=== PATIENT | female | born 1995 | race Caucasian/White ===

== ENCOUNTER 2023-08-28 16:57 | Outpatient (CLI) | payer BC, MEDICAID, SELFPAY | END 2023-08-28 16:58 | disposition home or self-care (01) | LOC: NFLDREF 09-05 11:36 | PROVIDERS: Visit Provider Nurse Practitioner Family | DX: R10.9 Unspecified abdominal pain (principal); R39.14 Feeling of incomplete bladder emptying; R30.0 Dysuria | CPT/HCPCS: 87086 ==

== ENCOUNTER 2023-08-30 14:48 | Emergency (ER) | payer BC, MEDICAID, SELFPAY ==
[2023-08-30 15:14] VITALS: BP 115/76; PULSE 70; RESP 16; TEMP 36.4; O2SAT 96; BMI 30.2
[2023-08-30] MEDS: LACTATED RINGERS 1000 ML 1,000 ML IV (15:57)
[2023-08-30] MEDS: diphenhydrAMINE 50 MG/ML inj 25 MG IVP (15:57)
[2023-08-30] MEDS: METOCLOPRAMIDE HCL 5 MG/ML INJ 10 MG IVP (15:57)
--- NOTE | 2023-08-30 16:27 | ED_ITS ---
HPI - Eye Problem General Date Seen: 08/30/23 Chief complaint: Eye Problems Stated complaint: Vision disruption - Time Seen by Provider: 08/30/23 15:20 Source: patient Mode of arrival: ambulatory Limitations: no limitations History of Present Illness HPI Narrative: Patient is a 27-year-old female presenting to the emergency department for visual disturbance noted to her left eye. 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 She is unsure what this exactly is from. 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 States she noticed a black spot in her vision that appeared blurry and then she began to notice shapes and lines going through her vision. This has since fully resolved and now she is having a headache. States she has ocular migraines the past but this felt different according to her. Denies weakness, numbness, chest pain, shortness of breath, lightheadedness, dizziness. No other concerns noted at this time peer Related Data Home Medications ?Medication ?Instructions ?Recorded ?Confirmed bupropion HCl 75 mg tablet 75 mg PO DAILY 08/28/23 08/28/23 fluorometholone 0.1 % eye drp ophthalmic (eye) 08/28/23 08/28/23 drops,suspension sumatriptan succinate 25 mg tablet mg PO 08/28/23 08/28/23 vibegron 75 mg tablet (Gemtesa) mg PO 08/28/23 08/28/23 Allergies Allergy/AdvReac Type Severity Reaction Status Date / Time Sulfa (Sulfonamide Allergy Verified 08/28/23 16:37 Antibiotics) sulfamethoxazole Allergy Verified 08/28/23 16:37 [From Bactrim] trimethoprim [From Bactrim] Allergy Verified 08/28/23 16:37 Review of Systems Narrative: Pertinent systems reviewed and negative unless stated in HPI PFSH PFSH Social History Smoking Status: Never smoker Do you use any of these nicotine containing products: None Second hand tobacco smoke exposure: No How often do you have a drink containing alcohol: never AUDIT-C Alcohol total score: 0 Non-prescribed substance use: denies use Exam Narrative: Exam Narrative: Const: Well-nourished, Well-developed, in mild distress Eyes: PERRL, no conjunctival injection, and symmetrical lids HENT: Atraumatic external nose and ears. Moist mucous membranes. Neck: Symmetric, trachea midline, No thyromegaly. MSK:Extremities w/o deformity, Normal Active ROM Skin: Warm, Dry. No rashes or lesions. Neuro: Normal Muscle tone, No focal neurological deficits. Psych: Awake, Alert, & Oriented x3. Appropriate mood and affect. Const: Vital Signs, click to edit/add: Vital Signs - 24 hr 08/30/23 15:14 Temperature 97.6 F Pulse Rate [Pulse Oximeter] 70 Respiratory Rate 16 Blood Pressure [Ri ght Upper Arm] 115/76 Pulse Oximetry 96 Oxygen Delivery Me thod Room Air Course Vital Signs Vital signs: Initial Vital Signs Temperature 97.6 F 08/30/23 15:14 Temperature Source Temporal Artery Scan 08/30/23 15:14 Pulse Rate 70 08/30/23 15:14 Respiratory Rate 16 08/30/23 15:14 Blood Pressure 115/76 08/30/23 15:14 Blood Pressure Mean 89 08/30/23 15:14 Pulse Oximetry 96 08/30/23 15:14 Oxygen Delivery Method Room Air 08/30/23 15:14 Vital Signs Temperature 97.6 F 08/30/23 15:14 Pulse Rate 70 08/30/23 15:14 Respiratory Rate 16 08/30/23 15:14 Blood Pressure 115/76 08/30/23 15:14 Pulse Oximetry 96 08/30/23 15:14 Oxygen Delivery Method Room Air 08/30/23 15:14 Temperature 97.6 F 08/30/23 15:14 Pulse Rate 70 08/30/23 15:14 Respiratory Rate 16 08/30/23 15:14 Blood Pressure 115/76 08/30/23 15:14 Pulse Oximetry 96 08/30/23 15:14 Oxygen Delivery Method Room Air 08/30/23 15:14 Medications Administered Medications: Discontinued Medications Generic Name Dose Route Start Last Admin Trade Name Freq PRN Reason Stop Dose Admin Diphenhydramine HCl 25 mg 08/30/23 15:30 08/30/23 15:57 Diphenhydramine 50 Mg/Ml Inj IVP 08/30/23 15:31 25 mg ONCE ONE Administration Lactated Ringer's 1,000 mls @ 1,000 mls/hr 08/30/23 15:30 08/30/23 15:57 Lactated Ringers 1000 Ml IV 08/30/23 16:29 1,000 mls/hr .Q1H ONE Administration Metoclopramide HCl 10 mg 08/30/23 15:30 08/30/23 15:57 Metoclopramide Hcl 5 Mg/Ml Inj IVP 08/30/23 15:31 10 mg ONCE ONE Administration MDM - Eye Problem MDM Narrative Medical decision making narrative: Patient is a 27-year-old female presenting to the emergency department for visual acuity changes. Her vision is back to normal. 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 Due to that this seems very unlikely to be in kind of tumor that caused his acute episode of blurry vision. I do not believe imaging is necessary at this time will be unnecessary radiation for a patient of her age. She is follow up frequently with Ophthalmology with her last visit being in 2022. She is having headaches we will treat her with a migraine cocktail including fluids, Benadryl, Reglan. After this medicine she is feeling much better. Visual acuity in left eye eyes 20/25. She would like to be discharged at this time and I believe this is reasonable. Discharge Plan Discharge Clinical Impression: Migraine Qualifiers: Migraine type: other Status migrainosus presence: without status migrainosus Intractability: not intractable Qualified Code(s): G43.809 - Other migraine, not intractable, without status migrainosus Patient Disposition: Home, Self-Care Condition: Improved Instructions: Migraine Headache (ED) Additional Instructions: Symptoms seem most likely to be related to another ocular migraine. If you do develop symptoms again make sure you get re-evaluated. If you are concerned you can follow-up with your cardiac exercise physiologist on Saturday. Return to emergency department for any other new or worsening symptoms Prescriptions: No Action Gemtesa 75 mg tablet PO bupropion HCl 75 mg tablet 75 mg PO DAILY sumatriptan succinate 25 mg tablet PO fluorometholone 0.1 % drops,suspension ophthalmic (eye) Follow Up/Referrals: Provider,Not a Local [Primary Care Provider] - Stand Alone Forms: [email or web address] Info Instructions
== END 2023-08-30 16:32 | disposition home or self-care (01) ==
PROVIDERS: Emergency Provider Student in an Organized Health Care Education/Training Program
DX: G43.809 Other migraine, not intractable, without status migrainosus (principal)
CPT/HCPCS: 96374; 96375; 99282; 99283; J1200; J2765; J7120

== ENCOUNTER 2024-01-09 14:00 | Emergency (ER) | payer BC, MEDICAID, SELFPAY ==
[2024-01-09 14:08] VITALS: BP 117/85; PULSE 96; RESP 14; TEMP 36.9; O2SAT 99; BMI 28.9
--- NOTE | 2024-01-09 14:30 | CRLHL7_ITS ---
For Patients: As a result of the Century Cures Act, medical imaging exams and procedure reports are released immediately into your electronic medical record. You may view this report before your referring provider. If you have questions, please contact your health care provider. CLINICAL HISTORY: Left-sided facial numbness. TECHNIQUE: Standard helical CT image acquisition through the head following the administration of intravenous contrast was performed. 3D and MIP reconstructions were performed at a separate workstation and permanently archived. COMPARISON: None available. FINDINGS: No intracranial proximal large vessel occlusion or flow-limiting luminal stenosis. No evidence of cerebral aneurysm. No findings to suggest an arterial-venous shunting lesion. The major dural venous sinuses and deep venous system are patent. IMPRESSION: No intracranial proximal large vessel occlusion, flow-limiting luminal stenosis, or cerebral aneurysm. Please note that all CT scans at this facility use dose modulation, iterative reconstruction, and/or weight-based dosing when appropriate to reduce radiation dose to as low as reasonably achievable. Dictated by Anup Luther MD @ 01/10/2024 10:49:02 AM (Electronically Signed)
--- NOTE | 2024-01-09 14:30 | CRLHL7_ITS ---
For Patients: As a result of the Century Cures Act, medical imaging exams and procedure reports are released immediately into your electronic medical record. You may view this report before your referring provider. If you have questions, please contact your health care provider. CLINICAL HISTORY: Left-sided facial numbness. TECHNIQUE: Standard helical CT image acquisition through the neck was performed after intravenous contrast bolus enhancement. 3D and MIP reconstructions were performed at a separate workstation and permanently archived. COMPARISON: None available. FINDINGS: The origins of the great vessels from the aortic arch are patent. The common carotid arteries are patent. No significant luminal stenoses of the proximal ICAs by NASCET criteria. The more distal cervical segments of the ICAs are patent. The origins and cervical segments of the vertebral arteries are patent. IMPRESSION: Patent cervical arterial vasculature without hemodynamically significant luminal stenosis. Please note that all CT scans at this facility use dose modulation, iterative reconstruction, and/or weight-based dosing when appropriate to reduce radiation dose to as low as reasonably achievable. Dictated by Anup Luther MD @ 01/10/2024 10:47:00 AM (Electronically Signed)
--- NOTE | 2024-01-09 14:30 | CRLHL7_ITS ---
For Patients: As a result of the Century Cures Act, medical imaging exams and procedure reports are released immediately into your electronic medical record. You may view this report before your referring provider. If you have questions, please contact your health care provider. INDICATION: LEFT SIDED FACIAL NUMBNESS TECHNIQUE: CT head without contrast. COMPARISON: None. FINDINGS: No intracranial hemorrhage. No discrete mass or mass effect. There is no midline shift. The basilar cisterns are patent. No hydrocephalus. The bernal-white matter interface is otherwise preserved. No acute osseous abnormality. No extracalvarial soft tissue abnormality. The mastoid air cells are clear. The paranasal sinuses are well-aerated. Punctate calcifications involving the periphery of the right globe, of indeterminate etiology, potentially sequela prior trauma or surgical manipulation. Recommend correlation with dedicated clinical history and localized physical exam. IMPRESSION: No acute intracranial process per unenhanced head CT. Punctate calcifications involving the periphery of the right globe, of indeterminate etiology, potentially sequela of prior trauma or surgical manipulation. Recommend correlation with dedicated clinical history and localized physical exam. Please note that all CT scans at this facility use dose modulation, iterative reconstruction, and/or weight-based dosing when appropriate to reduce radiation dose to as low as reasonably achievable. Dictated by Major Ba MD @ 01/09/2024 3:59:53 PM (Electronically Signed)
--- NOTE | 2024-01-09 14:38 | ED_ITS ---
HPI - Neuro Symptoms/Deficit General Date Seen: 01/09/24 Chief Complaint: Neuro Symptoms/Altered Deficit Stated Complaint: Half of face numb Time Seen by Provider: 01/09/24 14:11 Source: patient Mode of arrival: ambulatory Limitations: no limitations History of Present Illness HPI Narrative: Patient is a 28-year-old female presenting to the emergency department for left- sided numbness. She states she was seen outside hospital for some chest pain last week an elevated D-dimer and CTA was done showing no concerning abnormalities. She had follow-up appointment with her provider and was doing well and was started on Wellbutrin. She took her 1st dose of Wellbutrin last night with amitriptyline about 20:00 and she has developed left-sided facial numbness at 21:00. She states symptoms seem to go away by time she went to bed but woke up in she still states her face feels like her Novocain that is wearing off. The cheek is the worst part but states she has sensation to the entire l eft side of her body. Has never had symptoms like this before. Denies headache, vision changes, weakness, ataxia, dysarthria. Denies any other neurological issues. Denies chest pain, shortness of breath, abdominal pain, fatigue. Related Data Home Medications ?Medication ?Instructions ?Recorded ?Confirmed bupropion HCl 75 mg tablet 75 mg PO DAILY 08/28/23 01/09/24 amitriptyline 25 mg tablet 25 mg PO QPM 01/09/24 01/09/24 cholecalciferol (vitamin D3) 25 25 mcg PO DAILY 01/09/24 01/09/24 mcg (1,000 unit) capsule omeprazole 20 mg tablet,delayed 20 mg PO DAILY 01/09/24 01/09/24 release Allergies Allergy/AdvReac Type Severity Reaction Status Date / Time Sulfa (Sulfonamide Allergy Verified 01/09/24 15:55 Antibiotics) sulfamethoxazole (From Allergy Verified 01/09/24 15:55 Bactrim) trimethoprim (From Bactrim) Allergy Verified 01/09/24 15:55 Review of Systems Status of ROS: Reports: 10 or more systems reviewed and unremarkable except as noted in History and below PFSH PFSH Social History Smoking Status: Never smoker Do you use any of these nicotine containing products: None Second hand tobacco smoke exposure: No How often do you have a drink containing alcohol: monthly or less AUDIT-C Alcohol total score: 1 Non-prescribed substance use: denies use Exam Narrative: Exam Narrative: Const: Well-nourished, Well-developed, in no distress Eyes: PERRL, no conjunctival injection, and symmetrical lids HENT: Atraumatic external nose and ears. Moist mucous membranes. Neck: Symmetric, trachea midline, No thyromegaly. CVS: RRR, No murmurs or gallops. Peripheral pulses 2+ and equal in all extremities RESP: Unlabored respiratory effort. Clear to auscultation bilaterally. GI: Nontender/Nondistended, No rebound or guarding. MSK:Extremities w/o deformity, Normal Active ROM Skin: Warm, Dry. No rashes or lesions. Neuro: Normal Muscle tone, Cranial nerves 2-12 grossly intact other than numbness to the left side of her face, normal [id number], normal [id number], normal gait, normal strength 5/5 upper lower extremities bilaterally, normal sensation upper and lower extremities on the right-sided decreased sensation on the left, normal rapid alternating movements. Psych: Awake, Alert, & Oriented x3. Appropriate mood and affect. Const: Vital Signs, click to edit/add: Vital Signs - 24 hr 01/09/24 14:08 Temperature 98.5 F Pulse Rate [Pulse Oximeter] 96 Respiratory Rate 14 Blood Pressure [Ri ght Upper Arm] 117/85 Pulse Oximetry 99 Oxygen Delivery Me thod Room Air Course Vital Signs Vital signs: Initial Vital Signs Temperature 98.5 F 01/09/24 14:08 Temperature Source Temporal Artery Scan 01/09/24 14:08 Pulse Rate 96 01/09/24 14:08 Pulse Rhythm Regular 01/09/24 14:08 Respiratory Rate 14 01/09/24 14:08 Blood Pressure 117/85 01/09/24 14:08 Blood Pressure Mean 95 01/09/24 14:08 Blood Pressure Position Sitting 01/09/24 14:08 Pulse Oximetry 99 01/09/24 14:08 Oxygen Delivery Method Room Air 01/09/24 14:08 Vital Signs Temperature 98.5 F 01/09/24 14:08 Pulse Rate 96 01/09/24 14:08 Respiratory Rate 14 01/09/24 14:08 Blood Pressure 117/85 01/09/24 14:08 Pulse Oximetry 99 01/09/24 14:08 Oxygen Delivery Method Room Air 01/09/24 14:08 Temperature 98.5 F 01/09/24 14:08 Pulse Rate 96 01/09/24 14:08 Respiratory Rate 14 01/09/24 14:08 Blood Pressure 117/85 01/09/24 14:08 Pulse Oximetry 99 01/09/24 14:08 Oxygen Delivery Method Room Air 01/09/24 14:08 MDM - Neuro Symptoms/Deficit MDM Narrative Medical decision making narrative: Patient is a 28-year-old female presenting to emergency department for left- sided numbness worsen her left cheek that occurred yesterday right after she started Wellbutrin. She has no history of strokes. No obvious facial palsies. There may be some slight decrease on the left lip margin but her states her smile looks normal to him. This numbness could be an allergic reaction to the medications but is hard to say. Symptoms have been improving and she states right now mostly just feels like some Novocain is wearing off. No other symptoms currently. Will do CBC, BMP, troponin, test, magnesium, EKG. States she has never been told she has a atrial septal defect. Symptoms continue to improve while she is in the emergency department. CT scan of the head shows some calcifications near her right globe but she is blind in this eye since due to defect and this is likely chronic. CTA showed no acute abnormalities. Lab work shows no concerning abnormalities. I spoke to her about possible MRI to better evaluate. I explained while I do not expect to see abnormalities on the MRI I cannot say for certain until it is done. At this time though she feels comfortable discharging without the MRI but will follow up if symptoms worsen. This is reasonable and she will be discharged. Lab Data Labs: Lab Results 01/09/24 Range/Units 14:40 WBC 7.48 (4.50-11.00) K/uL RBC 4.75 (4.00-5.20) m/uL Hgb 13.8 (12.0-16.0) gm/dL Hct 41.5 (33.0-51.0) % MCV 87 (80-100) fL MCH 29 (26-34) pg MCHC 33 (32-36) gm/dL RDW Coeff of Imelda 11.8 (11.5-15.5) % Plt Count 346 (140-440) K/uL Neut % (Auto) 61.7 (42.0-72.0) % Lymph % (Auto) 29.1 (20-44) % [place] % (Auto) 7.5 (0.0-11.0) % Eos % (Auto) 0.9 (0.0-7.0) % Baso % (Auto) 0.4 (0.0-3.0) % Neut # (Auto) 4.61 (1.7-7.0) K/uL Lymph # (Auto) 2.18 (0.90-2.90) K/uL [place] # (Auto) 0.60 (0.00-0.90) K/UL Eos # (Auto) 0.07 (0.00-0.50) K/uL Baso # (Auto) 0.03 (0.00-0.30) K/uL Abs Immat Gran (auto) 0.03 (0.00-0.30) K/uL Imm/Tot Granulo (auto) 0.4 % Sodium 140 (135-149) mmol/L Potassium 4.2 (3.6-5.1) mmol/L Chloride 105 (96-114) mmol/L Carbon Dioxide 24 (20-32) mmol/L Anion Gap 11 (7-15) mEq/L BUN 7 (5-24) mg/dL Creatinine 0.7 (0.5-1.5) mg/dL Estimated Creat Clear 98.98 Estimated GFR 121 ml/min Glucose 90 (60-115) mg/dL Calcium 9.7 (8.4-10.6) mg/dL Magnesium 2.2 (1.5-2.6) mg/dL HCG, Qual Negative (Negative) POC Troponin I 0.00 L (0.01-0.04) ng/ml Imaging Data CT scan head: Attestation: I have reviewed the pertinent imaging results. Radiologist's impression: No acute intracranial process per unenhanced head CT. Punctate calcifications involving the periphery of the right globe, of indeterminate etiology, potentially sequela of prior trauma or surgical manipulation. Recommend correlation with dedicated clinical history and localized physical exam. Please note that all CT scans at this facility use dose modulation, iterative reconstruction, and/or weight-based dosing when appropriate to reduce radiation dose to as low as reasonably achievable. Dictated by Major Ba MD @ 01/09/2024 3:59:53 PM CTA head and neck: Attestation: I have reviewed the pertinent imaging results. Radiologist's impression: Preliminary Report: Comparison: None Impression: CTA HEAD: 1. No hemodynamically significant stenosis posterior circulation. 2. No hemodynamically significant stenosis anterior circulation. 3. Patent dural venous sinuses. CTA NECK: 1. No hemodynamically significant extracranial vertebral stenosis. 2. No hemodynamically significant extracranial carotid stenosis. Read by:?Armando Vasquez MD @01/09/2024 4:14:57 PM ECG Data Attestation: I personally reviewed and interpreted this ECG as follows: Prior ECG tracings: not available for review Interpretation: Normal sinus rhythm with a rate of 88 beats per minute, normal intervals, normal axis, no ST or T-wave abnormalities Discharge Plan Discharge Clinical Impression: Numbness and tingling Instructions: Paresthesia (ED) Additional Instructions: I cannot say for certain what is causing the numbness sensation they recommend close follow-up with your primary care provider. If symptoms continue or get worse return to emergency department for re-evaluation. Prescriptions: No Action bupropion HCl 75 mg tablet 75 mg PO DAILY amitriptyline 25 mg tablet 25 mg PO QPM cholecalciferol (vitamin D3) 25 mcg (1,000 unit) capsule 25 mcg PO DAILY omeprazole 20 mg tablet,delayed release (DR/EC) 20 mg PO DAILY Follow Up/Referrals: Provider,Not a Local [Non-Staff] - Stand Alone Forms: [employer] Info Instructions
[2024-01-09 14:56] LABS: Basophils Absolute Auto 0.03 K/uL (0.00-0.30); Basophils Percent Auto 0.4 % (0.0-3.0); Eosinophils Absolute Auto 0.07 K/uL (0.00-0.50); Eosinophils Percent Auto 0.9 % (0.0-7.0); Hematocrit 41.5 % (33.0-51.0); Hemoglobin* 13.8 gm/dL (12.0-16.0); Immature Granulocytes Abs Auto 0.03 K/uL (0.00-0.30); Immature Granulocytes Pct Auto 0.4 %; Lymphocytes Absolute Auto 2.18 K/uL (0.90-2.90); Lymphocytes Percent Auto 29.1 % (20-44); Mean Corpuscular HGB Conc 33 gm/dL (32-36); Mean Corpuscular Hemoglobin 29 pg (26-34); Mean Corpuscular Volume 87 fL (80-100); Monocytes Percent Auto 7.5 % (0.0-11.0); Neutrophils Absolute Auto 4.61 K/uL (1.7-7.0); Neutrophils Percent Auto 61.7 % (42.0-72.0); Platelet Count* 346 K/uL (140-440); RDW Coefficient of Variation % 11.8 % (11.5-15.5); Red Blood Count 4.75 m/uL (4.00-5.20); White Blood Count* 7.48 K/uL (4.50-11.00)
[2024-01-09 14:58] LABS: Slide Review Reflex No
[2024-01-09 15:05] LABS: Chloride* 105 mmol/L (96-114); Potassium* 4.2 mmol/L (3.6-5.1); Sodium* 140 mmol/L (135-149)
[2024-01-09 15:08] LABS: Anion Gap 11 mEq/L (7-15); Blood Urea Nitrogen* 7 mg/dL (5-24); Carbon Dioxide* 24 mmol/L (20-32); Creatinine* 0.7 mg/dL (0.5-1.5); Est. Creatinine Clearance* 98.98; Estimated Glomerular Filt Rate 121 ml/min
[2024-01-09 15:09] LABS: Calcium* 9.7 mg/dL (8.4-10.6); Glucose* 90 mg/dL (60-115); Magnesium* 2.2 mg/dL (1.5-2.6)
[2024-01-09 15:17] LABS: HCG Qualitative Serum* Negative (Negative)
== END 2024-01-09 16:45 | disposition home or self-care (01) ==
PROVIDERS: Emergency Provider Student in an Organized Health Care Education/Training Program; PCP Physician Assistant
DX: R20.0 Anesthesia of skin (principal)
CPT/HCPCS: 36415; 70450; 70496; 70498; 80048; 83735; 84484; 84703; 85025; 93005; 99283; 99284; 99285; Q9967

== ENCOUNTER 2024-04-30 18:43 | Outpatient (CLI) | payer MEDICAID, SELFPAY | END 2024-04-30 18:44 | disposition home or self-care (01) | LOC: NFLDREF 05-05 03:13 | PROVIDERS: PCP Physician Assistant; Referring Provider Physician Assistant; Visit Provider Nurse Practitioner | DX: R30.0 Dysuria (principal); N30.00 Acute cystitis without hematuria | CPT/HCPCS: 87086 ==

== ENCOUNTER 2024-05-14 09:16 | Outpatient (CLI) | payer MEDICAID, SELFPAY | END 2024-05-14 09:17 | disposition home or self-care (01) | LOC: NFLDREF 05-15 10:25 | PROVIDERS: PCP Physician Assistant; Referring Provider Physician Assistant; Visit Provider Nurse Practitioner | DX: R30.0 Dysuria (principal); N30.01 Acute cystitis with hematuria; N39.0 Urinary tract infection, site not specified | CPT/HCPCS: 87086 ==